=== PATIENT | male | born 1955 | race African-American/Black ===

== ENCOUNTER 2018-04-11 06:50 | Day surgery (SDC) | payer OTHER ==
[~2018-04-11] VITALS: Ht 182.9 cm; Wt 90.7 kg
[~2018-04-11 06:50] MED LIST: ALLOPURINOL300 MG PO; AMLODIPINE BESY10 MG PO; COZAAR100 MG PO; DAILY MULTIPLE1 EACH PO; FOLIC ACID0.8 MG PO; HYDREA500 MG PO; HYDROCODON-ACE1 EAC9 PO; TOPROL XL100 MG PO
[2018-04-11 07:34] VITALS: BP 160/78
[2018-04-11 10:55] VITALS: BP 160/79
[2018-04-11 11:35] VITALS: BP 157/80
== END 2018-04-11 11:35 | disposition home or self-care (01) ==
LOC: SDC 06:50
DX: H33.021 Retinal detachment with multiple breaks, right eye (principal); D57.1 Sickle-cell disease without crisis; H36 Retinal disorders in diseases classified elsewhere; I10 Essential (primary) hypertension
CPT/HCPCS: J0690